=== PATIENT | female | born 1990 | race Caucasian/White ===

== ENCOUNTER 2019-05-09 23:27 | Emergency (ER) | payer OTHER ==
[~2019-05-09] VITALS: Ht 165.1 cm; Wt 57.6 kg
[2019-05-09 23:34] VITALS: Ht 165.1 cm; Wt 57.6 kg
[2019-05-10 02:28] VITALS: BP 126/82
== END 2019-05-10 02:28 | disposition home or self-care (01) ==
LOC: ED 23:27
DX: S61.256A Open bite of right little finger without damage to nail, initial encounter (principal); Y04.1XXA Assault by human bite, initial encounter; Y93.89 Activity, other specified; Y92.89 Other specified places as the place of occurrence of the external cause; Y99.8 Other external cause status
CPT/HCPCS: 90715; J0295; J1885